=== PATIENT | female | born 2000 | race Caucasian/White ===

== ENCOUNTER 2021-09-26 15:17 | Outpatient (CLI) | payer BC, SELFPAY ==
--- OUTSIDE RECORDS SUMMARY | 2021-09-26 15:25 | XMS_ITS | Encounter Summary ---
:2000 Author Organization [facility] Address [address] [place] [address] Care Team Providers Name Role Phone Unavailable Primary Care Provider Unavailable Encounter Details Date Type Department Care Team Description 01/04/2020 Admin Visit Department of Family Medicine, [address] [address] [facility] [phone] Social History Tobacco Use Types Packs/Day Years Used Date Smoking Tobacco: Never Assessed Sex Assigned at Date Recorded Not on file documented as of this encounter Plan of Treatment Not on filedocumented as of this encounter Visit Diagnoses Not on filedocumented in this encounter Additional Health Concerns Infection Onset Date Last Indicated Resolved Time COVID19 Pending 01/04/2020 01/04/2020 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
--- OUTSIDE RECORDS SUMMARY | 2021-09-26 15:25 | XMS_ITS | Encounter Summary ---
:2000 Author Organization [facility] Address [address] [place] [address] Care Team Providers Name Role Phone Unavailable Primary Care Provider Unavailable Encounter Details Date Type Department Care Team Description 04/26/2020 Clinical Communication Division of Hematology Rachael Love, and Medical Oncology Kaylee Raphael. in [place], [address] [facility] [address] [place] [phone] Social History Tobacco Use Types Packs/Day Years Used Date Smoking Tobacco: Never Assessed Sex Assigned at Date Recorded Not on file documented as of this encounter Plan of Treatment Not on filedocumented as of this encounter Visit Diagnoses Not on filedocumented in this encounter
--- OUTSIDE RECORDS SUMMARY | 2021-09-26 15:25 | XMS_ITS | Clinical Summary ---
:2001 Author Organization [facility] Address [address] [place] [address] Care Team Providers Name Role Phone Unavailable Primary Care Provider Unavailable Source Comments Patient records contain information from all sites at [facility]. For routine questions regarding patient records, call [phone] during business hours, M-F 8:00 AM - 5:00 PM Central Time. Record requests for emergency care only can be directed to [phone] at any time.[facility] Social History Tobacco Use Types Packs/Day Years Used Date Smoking Tobacco: Never Assessed Sex Assigned at Date Recorded Not on file Plan of Treatment Health Maintenance Due Date Last Done Comments Chlamydia and Gonorrhea 2001 Screening HIV Screening 2001 Hearing Screening during 2001 Well Child Visit Hepatitis C Screening 2001 1 week Well Child Check-Up 2001 2 month Well Child Check-Up 2001 4 month Well Child Check-Up 2001 6 month Well Child / 2001 Alternative Check-Up COVID-19 Vaccine (#1) 2001 9 month Well Child Check-Up 01/15/2002 12 month Well Child / 04/15/2002 Alternative Check-Up 15 month Well Child Check-Up 07/16/2002 18 month Well Child / 10/16/2002 Alternative Check-Up 2 year Well Child Check-Up 04/16/2003 (Medicaid) 2 year Well Child Check-Up 04/16/2003 30 month Well Child Check-Up 10/17/2003 (Medicaid) 3 year Well Child Check-Up 04/15/2004 4 year Well Child Check-Up 04/15/2005 (Medicaid) 5 year Well Child Check-Up 2005 5 year Well Child Check-Up 04/15/2006 (Medicaid) 6 year Well Child Check-Up 04/16/2007 (Medicaid) 7 year Well Child / 04/15/2008 Alternative Check-Up 8 year Well Child Check-Up 04/15/2009 (Medicaid) 9 year Well Child / 04/15/2010 Alternative Check-Up 10 year Well Child Check-Up 04/16/2011 (Medicaid) 11 year Well Child Check-Up 04/15/2012 12 year Well Child Check-Up 04/15/2013 (Medicaid) 13 year Well Child Check-Up 04/15/2014 14 year Well Child Check-Up 04/16/2015 (Medicaid) Vision Screening during Well 05/17/2015 Child Visit 16 year Well Child Check-Up 04/15/2016 16 year Well Child Check-Up 04/15/2017 (Medicaid) 17 year Well Child Check-Up 04/15/2018 18 year Well Child Check-Up 04/16/2019 (Medicaid) 19 year Well Child Check-Up 04/15/2020 Depression Screening (Annual 02/16/2021 PHQ-2) 21 year Well Child Check-Up 04/15/2021 (Medicaid) Influenza Vaccine (#1) 2021 Well Child Check-Up ([facility]) 04/15/2022 DTaP,Tdap,and Td Vaccines (7 07/05/2022 07/05/2012, 007, - Td or Tdap) 08/16/2002, Additional history exists Hepatitis B Vaccines Completed 02/28/2002, 2001, 2001 Pneumococcal vaccine (0-64 Aged Out 08/16/2002, 2, No longer eligible years) 2001 based on patient 's age to complete this topic HPV Vaccines Completed 11/08/2018, 10/06/2013, 05/18/2013 Meningococcal Vaccine Completed 11/08/2018, 07/05/2012 Anemia/Iron Deficiency Completed 03/17/2019, 06/24/2018 Screening During Well Child Visit (if High Risk Menstruating Female) Insurance Payer Benefit Plan / Subscriber ID Effective Dates Phone Addre ss Type Group [employer] [id number] 2013-Sophie [phone] [address] PPO BLUE [facility] [address] [place] [address]
--- OUTSIDE RECORDS SUMMARY | 2021-09-26 15:25 | XMS_ITS | Encounter Summary ---
:2000 Author Organization [facility] Address [address] [place] [address] Care Team Providers Name Role Phone Unavailable Primary Care Provider Unavailable Reason for Visit Reason Onset Date Comments Outpatient COVID-19 Testing 01/04/2020 Encounter Details Date Type Department Care Team Description 01/04/2020 External Outreach Department of Ambrosio Deleon Infect ion Upper Internal Medicine in J, D.O. Respiratory ([place], [place] [address] Dx) [address] [place] [phone] Social History Tobacco Use Types Packs/Day Years Used Date Smoking Tobacco: Never Assessed Sex Assigned at Date Recorded Not on file documented as of this encounter Progress Notes Rosetta Mulligan, R.N. - 01/04/2020 9:44 AM CST Encounter created for the drive-through COVID-19 testing. ER SEAL documented in this encounter Plan of Treatment Not on filedocumented as of this encounter Procedures Procedure Name Priority Date/Time Associated Comments Diagnosis SARS CORONAVIRUS 2 Routine 01/04/2020 9:45 AM Res ults for this PCR DETECT, V FISHER SEAL procedure are in the results section. documented in this encounter Results SARS Coronavirus 2 RNA Detection (01/04/2020 9:45 AM FISHER SEAL) [facility] Method Time Signature SARS-CoV-2 Nasopharynx 01/05/2020 [facility] Specimen 12:15 PM FISHER SEAL Source SARS-CoV-2 Undetected Undetected 01/05/2020 [facility] RNA by PCR 12:15 PM FISHER SEAL Comment: SARS-CoV-2 RNA absent. This result does not rule out COVID-19 in the patient, as the sensitivity of the test depends o n the timing of the specimen collection and the quality of the specim en. Result should be correlated with patient's history and clinical presentat ion. ----ADDITIONAL INFORMATION---- This PCR test was performed using the LessonFace SARS-CoV-2 assay ([employer] on the kayce MiniBanda.ru0 System under emergency use authorization (EUA) by the U.S. Food and Drug Administ ration. Fact sheets for this assay can be found at the following links: For Healthcare Providers: https://www.[employer] a.gov/media/687816/download For Patients: https://www.fda.gov/media/ 406302/download Specimen Anatomical Collection Method Collection Time Receive d Time (Source) Location / / Volume Laterality Varies 01/04/2020 9:45 AM 0 1:48 FISHER SEAL AM FISHER SEAL Ambrosio Deleon D.O. LAB MICROBIOLOGY - GENERAL O RDERABLES Performing Organization Address City/State/ZIP Code Phon e Number [facility] [address] [place] [address] SUPPORT CENTER [facility] [place] [address] Laboratory Medicine and Pathology [address] [place] documented in this encounter Visit Diagnoses Diagnosis Infection Upper Respiratory - Primary documented in this encounter Additional Health Concerns Infection Onset Date Last Indicated Resolved Time COVID19 Pending 01/04/2020 01/04/2020 01/04/2020 12:43 PM FISHER SEAL documented as of this encounter
[2021-09-27 17:47] LABS: Strep B DNA Probe NEGATIVE (Negative)
== END 2021-09-26 15:18 | disposition home or self-care (01) ==
LOC: NFLDREF 15:23
PROVIDERS: PCP Family Medicine; Visit Provider Physician Assistant
DX: Z34.93 Encounter for supervision of normal pregnancy, unspecified, third trimester (principal); Z3A.36 36 weeks gestation of pregnancy
CPT/HCPCS: 87081; 87653

== ENCOUNTER 2021-09-27 16:15 | Inpatient (IN) | payer BC, SELFPAY ==
[2021-09-27] VITALS (41 sets, daily range): BP systolic 92–184; BP diastolic 51–91; PULSE 54–102; RESP 16–18; TEMP 36.9–37; O2SAT 89–100; BMI 33.3
--- OUTSIDE RECORDS SUMMARY | 2021-09-27 14:27 | XMS_ITS | Encounter Summary ---
:2001 Author Organization [facility] Address [address] [place] [address] Care Team Providers Name Role Phone Unavailable Primary Care Provider Unavailable Encounter Details Date Type Department Care Team Description 01/04/2020 Admin Visit Department of Family Medicine, [address] [address] [facility] [phone] Social History Tobacco Use Types Packs/Day Years Used Date Smoking Tobacco: Never Assessed Sex Assigned at Date Recorded Not on file documented as of this encounter Plan of Treatment Not on filedocumented as of this encounter Visit Diagnoses Not on filedocumented in this encounter Additional Health Concerns Infection Onset Date Last Indicated Resolved Time COVID19 Pending 01/04/2020 01/04/2020 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
--- OUTSIDE RECORDS SUMMARY | 2021-09-27 14:27 | XMS_ITS | Encounter Summary ---
:2001 Author Organization [facility] Address [address] [place] [address] Care Team Providers Name Role Phone Unavailable Primary Care Provider Unavailable Encounter Details Date Type Department Care Team Description 04/26/2020 Clinical Communication Division of Hematology Rachael Love, and Medical Oncology Kaylee Raphael. in [place], [address] [facility] [address] [place] [phone] Social History Tobacco Use Types Packs/Day Years Used Date Smoking Tobacco: Never Assessed Sex Assigned at Date Recorded Not on file documented as of this encounter Plan of Treatment Not on filedocumented as of this encounter Visit Diagnoses Not on filedocumented in this encounter
--- OUTSIDE RECORDS SUMMARY | 2021-09-27 14:27 | XMS_ITS | Encounter Summary ---
:2001 Author Organization [facility] Address [address] [place] [address] Care Team Providers Name Role Phone Unavailable Primary Care Provider Unavailable Encounter Details Date Type Department Care Team Description 06/12/2020 Orders Only [facility] PCP TH Sa rita Lynch M.D. [address] [place], [place] [phone] (Wo rk) Social History Tobacco Use Types Packs/Day Years Used Date Smoking Tobacco: Never Assessed Sex Assigned at Date Recorded Not on file documented as of this encounter Plan of Treatment Not on filedocumented as of this encounter Visit Diagnoses Not on filedocumented in this encounter
--- OUTSIDE RECORDS SUMMARY | 2021-09-27 14:27 | XMS_ITS | Encounter Summary ---
:2001 Author Organization [facility] Address [address] [place] [address] Care Team Providers Name Role Phone Unavailable Primary Care Provider Unavailable Reason for Visit Reason Onset Date Comments Outpatient COVID-19 Testing 01/04/2020 Encounter Details Date Type Department Care Team Description 01/04/2020 External Outreach Department of Ambrosio Deleon Infect ion Upper Internal Medicine in J, D.O. Respiratory ([place], [place] [address] Dx) [address] [place] [phone] Social History Tobacco Use Types Packs/Day Years Used Date Smoking Tobacco: Never Assessed Sex Assigned at Date Recorded Not on file documented as of this encounter Progress Notes Rosetta Mulligan, R.N. - 01/04/2020 9:44 AM CST Encounter created for the drive-through COVID-19 testing. 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 documented in this encounter Results SARS Coronavirus 2 RNA Detection (01/04/2020 9:45 AM GAME DESIGNER/CREATIVE DIRECTOR) [facility] Method Time Signature SARS-CoV-2 Nasopharynx 01/05/2020 [facility] Specimen 12:15 PM GAME DESIGNER/CREATIVE DIRECTOR Source SARS-CoV-2 Undetected Undetected 01/05/2020 [facility] RNA by PCR 12:15 PM GAME DESIGNER/CREATIVE DIRECTOR Comment: SARS-CoV-2 RNA absent. This result does not rule out COVID-19 in the patient, as the sensitivity of the test depends o n the timing of the specimen collection and the quality of the specim en. Result should be correlated with patient's history and clinical presentat ion. ----ADDITIONAL INFORMATION---- This PCR test was performed using the 4s91.com SARS-CoV-2 assay ([employer] on the kayce ZoomForth0 System under emergency use authorization (EUA) by the U.S. Food and Drug Administ ration. Fact sheets for this assay can be found at the following links: For Healthcare Providers: https://www.[employer] a.gov/media/427242/download For Patients: https://www.fda.gov/media/ 519630/download Specimen Anatomical Collection Method Collection Time Receive d Time (Source) Location / / Volume Laterality Varies 01/04/2020 9:45 AM 0 1:48 GAME DESIGNER/CREATIVE DIRECTOR AM GAME DESIGNER/CREATIVE DIRECTOR Ambrosio Deleon D.O. LAB MICROBIOLOGY - GENERAL O RDERABLES Performing Organization Address City/State/ZIP Code Phon e Number [facility] [address] [place] [address] SUPPORT [facility] [place] [address] Laboratory Medicine and Pathology [address] [place] documented in this encounter Visit Diagnoses Diagnosis Infection Upper Respiratory - Primary documented in this encounter Additional Health Concerns Infection Onset Date Last Indicated Resolved Time COVID19 Pending 01/04/2020 01/04/2020 01/04/2020 12:43 PM GAME DESIGNER/CREATIVE DIRECTOR documented as of this encounter
--- NOTE | 2021-09-27 16:31 | P.OBHP_ITS ---
OB - H&P: HPI Labor/Induction History of Present Illness Time Seen by Provider: 16:31 Date Seen: 09/27/21 Chief Complaint: The patient is a 21 year old 1 para 0 at 36 4/7 weeks gestation by a first trimester USN, who presents with painful contractions that started as cramping yesterday. Vertex presentation. No complaint of leaking fluid. GBS was collected yesterday and the result is not available at the time of this note. The [facility] bpm consultant detective [facility] was contacted to see if they would recommend antibiotics for GBS prophylaxis due to GBS unknown status. The baby has been moving normally. The patient denies headache, swelling, visual changes, right upper quadrant pain and midepigastric pain. PAST OBSTETRICAL HISTORY: No previous pregnancies Contraception being uses during time of conception: No. Last menstrual period normal: History of irregular.. Usual length of cycle: Irregular. Treatment for infertility: No. LMP: Uncertain. Last pap: Due for 1st Pap at age 22. History of abnormal pap: Not applicable. History of STI or PID: Denies. History of MRSA: Denies. PAST MEDICAL HISTORY: History of depression. She has been off medication for 1-2 years. She reports some multiple medication trials and does not recall what did work for her. She feels she is doing well currently IMMUNIZATIONS: Up-to-date. History of chicken pox: No . SURGICAL HISTORY: None report History of blood transfusion: No . 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 Marital status: Single. Baptist/cultural needs: No. Chemical or radiation exposure: No. Pre- tobacco use: Yes. Pre- alcohol use: No. Current tobacco use: vape daily. Current alcohol use: No. Recreational drug use: No. Dietary restrictions: No. Blood transfusion acceptable in an emergency: Yes . FAMILY AND GENETIC HISTORY: Negative for recurrent loss, defects, inheritable disease. PSYCHOSOCIAL HISTORY: History of depression or currently depresses: Yes. Current physical, emotional, or sexual mistreatment: No. Problems that will make it hard to make it to appointments: No. REVIEW OF SYSTEMS: Positives noted above. Remainder of 10 point review of system today is negative Chief complaint: Maternity Narrative: Teresita Lucas is a 21 year old female History of Present Dating criteria: based on 1st trimester US only Review of Systems Status of ROS: Reports: 10 or more systems reviewed and unremarkable except as noted in History and below Meds Home Medications and Allergies Home Medications Medication Instructions Recorded Confirmed Type ferrous sulfate 325 mg (65 mg 325 mg PO QDAY 08/27/21 09/27/21 History iron) tablet prenat.vits,duglas,brp-raia-ekclo 1 tab PO QDAY 08/27/21 09/27/21 History Allergies Allergy/AdvReac Type Severity Reaction Status Date / Time Sulfa (Sulfonamide Allergy Mild Rash Verified 09/26/21 15:13 Antibiotics) OB - H&P: Exam Physical Exam: Vital signs: Pulse BP 62 131/76 09/27/21 14:29 09/27/21 14:29 Narrative: EXAM: VITAL SIGNS: Normal: see EMR. She is afebrile. GENERAL: She is alert and oriented times three in no acute distress. HEART: Regular rate and rhythm. LUNGS: Clear to auscultation bilaterally. ABDOMEN: Soft, nontender, and gravid with positive bowel sounds throughout. HEART TONES: 130's, (+) accels, (-) decels, reactive. Category 1. TOCO: Q2-3 minutes. PRESENTATION: Vertex by Tex's maneuvers. SVE per nursincm/100%/0 with a bulging bag of water. EXTREMITIES: Without cyanosis, clubbing, or edema. No varicosities are seen. NEUROLOGIC: Intact. OB - Problem Based A/P Additional Plan (1) : Status: Acute Delivery/Labor/Induction Plan Plan: expectant management and other (Expect vaginal delivery. Patient desires an epidural. )
[2021-09-27] MEDS: LACTATED RINGERS 1000 ML 1,000 ML IV ×2 (16:38→17:13)
[2021-09-27] MEDS: ROPIVACAINE 0.2% 100 ml 100 ML 12 MG EPIDURAL (16:55)
[2021-09-27 17:38] LABS: SARS PCR* Negative SARS-CoV-2 (Negative)
[2021-09-27] MEDS: AMPICILLIN 2 GM in 0.9 % SODIUM CHLORIDE Mini-bag 100 ML IVPB (17:51)
[2021-09-27 17:56] LABS: Amphetamine Screen Urine Negative (Negative); Barbiturate Screen Urine Negative (Negative); Benzodiazepines Screen Urine Negative (Negative); Cocaine Screen Urine Negative (Negative); Methadone Screen Urine Negative (Negative); Methamphetamines Screen Urine Negative (Negative); Opiate Screen Urine Negative (Negative); Oxycodone Screen Urine Negative (Negative); Phencyclidine Screen Urine Negative (Negative); Tricyclic Antidepressant Urine Negative (Negative)
[2021-09-27 18:05] LABS: Cannabinoid Screen Urine POSITIVE (Negative)
--- NOTE | 2021-09-27 18:48 | PM.ANBPRC ---
PFSH PFS Social History Smoking Status: Current every day smoker Meds Home Medications and Allergies Home Medications Medication Instructions Recorded Confirmed Type ferrous sulfate 325 mg (65 mg 325 mg PO QDAY 08/27/21 09/27/21 History iron) tablet prenat.vits,duglas,nzc-yszx-kifjx 1 tab PO QDAY 08/27/21 09/27/21 History Allergies Allergy/AdvReac Type Severity Reaction Status Date / Time Sulfa (Sulfonamide Allergy Mild Rash Verified 09/26/21 15:13 Antibiotics) Results Labs Labs: Laboratory Results - last 24 hr 09/27/21 09/27/21 16:40 18:00 Urine Opiates Screen Negative Ur Oxycodone Screen Negative Urine Methadone Screen Negative Ur Propoxyphene Screen Negative Ur Barbiturates Screen Negative U Tricyclic Antidepress Negative Ur Phencyclidine Scrn Negative Ur Amphetamines Screen Negative U Methamphetamines Scrn Negative U Benzodiazepines Scrn Negative Urine Cocaine Screen Negative U Marijuana (THC) Screen POSITIVE A* SARS-CoV-2 (PCR) Negative SARS-CoV-2 Vital Signs Vital Signs: Last Vital Signs Pulse 70 09/27/21 18:36 BP 92/54 L 09/27/21 18:36 Pulse Ox 99 09/27/21 17:14 Weight: 85.275 kg Height: 160.02 cm Anesthesia Procedures Epidural Insertion Patient Location: OB Start Time: 16:45 Stop Time: 17:35 Start Date: 09/27/21 Stop Date: 09/27/21 Reason for Block: procedure for pain Patient Position: sitting Performed By: Shane Wilson Preanesthetic Checklist: IV checked, risks and benefits discussed, surgical consent, monitors and equipment checked, pre-op evaluation, timeout performed and anesthesia consent Prep: chlorhexidine gluconate Monitoring: blood pressure monitoring, continuous pulse oximetry and heart rate Approach: midline Vertebral Space: lumbar (1-5) Epidural Technique: DARLENE saline Needle Type: Tuohy needle Injection Technique: continuous catheter Needle gauge: 17 Needle Length (cm): 10 cm Needle Insertion Depth (cm): 6 Catheter Gauge: 19 Catheter Type: multi-orifice Catheter at skin depth (cm): 12 Test Dose Result: negative and lidocaine 1.5% with epinephrine 1 to 200,000
--- NOTE | 2021-09-27 20:19 | PM.OBPNL ---
Pain Control Time Seen by Provider: 20:18 Date Seen: 09/27/21 Pain control: epidural (States that she is having a lot of pressure like she has to push. Verbal consent for AROM) Contractions Monitor mode: External Contraction frequency: 3 Contraction pattern: Regular Contraction intensity: Moderate Pelvic Exam Dilation (cm): 7 Effacement (%): 100 Station: +1 Fetus (Single) Amniotic Membrane Status: AROM (Thick meconium) status: Category ll Comments: Baseline 130-140bpm, variable decels intermittently to 90-100's, moderate variability, (+) accels, reactive. 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 Expect
[2021-09-27] MEDS: OXYTOCIN 30 unit/500 ML in NS 30 UNIT/500 ML BAG 300 UNIT IVPB (20:44)
[2021-09-27] MEDS: LIDOCAINE 1 % PF 30 ML INJECTION (21:00)
--- NOTE | 2021-09-27 21:01 | PM.GYNDS1 ---
DS: Providers Provider Date of admission: 09/27/21 16:15 Primary care physician: Krishna Hurley MD Admitting Clinician: Cassie Jay MD Consults: 09/27/21 16:54 Consult to Gift Consultant [CONS] Routine Comment: Reason for Consult:: Substance Abuse Screening 09/27/21 17:35 Consult to Gift Consultant [CONS] Routine Comment: Reason for Consult:: Substance Abuse Screening Attending Physician on discharge: Cassie Jay MD TAKER OFF HEMP FIBER-Discharge Summary Hospital Course Hospital Course Narrative: Patient is a [] year old admitted on [] for []. Indication for surgery: []. Intraoperative findings were notable for []. She had an uncomplicated surgery. Postoperative course has been uneventful. Vitals have been stable. She has remained afebrile. Today, on postoperative day [], she reports the pain is well controlled. She has been able to ambulate Without difficulty. She is tolerating regular diet. She is passing flatus. Ceja catheter has been removed, and she is voiding without difficulty. Time Spent with Patient Time attestation: Total time spent providing and/or coordinating discharge services: TAKER OFF HEMP FIBER - Exam Physical Exam: Vital signs: Temp Pulse Resp BP Pulse Ox 98.5 F 98 16 158/84 H 99 09/27/21 20:15 09/27/21 20:22 09/27/21 19:17 09/27/21 20:22 09/27/21 19:30 TAKER OFF HEMP FIBER - DS: Data Data Completed and Pending Labs on day of discharge: Labs from last 24 hours 09/27/21 09/27/21 18:00 16:40 Urine Opiates Screen Negative Ur Oxycodone Screen Negative Urine Methadone Screen Negative Ur Propoxyphene Screen Negative Ur Barbiturates Screen Negative U Tricyclic Antidepress Negative Ur Phencyclidine Scrn Negative Ur Amphetamines Screen Negative U Methamphetamines Scrn Negative U Benzodiazepines Scrn Negative Urine Cocaine Screen Negative U Marijuana (THC) Screen POSITIVE A* SARS-CoV-2 (PCR) Negative SARS-CoV-2 Discharge Plan Discharge Date of Admission: 09/27/21 16:15 Attending Physician on Admission: Cassie Jay Primary Care Provider: Krishna Hurley Discharge Medications: No Action ferrous sulfate 325 mg (65 mg iron) tablet 325 mg PO QDAY prenat.vits,duglas,mmx-cehj-mthfh Tablet 1 tab PO QDAY ondansetron HCl 4 mg tablet See Rx Instructions .ROUTE .COMPLEX Qty: 30 0RF Dose Instruction: TAKE 1 TABLET BY MOUTH EVERY 6 HOURS Rx Instructions: TAKE 1 TABLET BY MOUTH EVERY 6 HOURS Follow Up Appointments: Krishna Hurley MD [Primary Care Provider] -
--- NOTE | 2021-09-27 21:03 | PM.OBPRCVD ---
Procedure Delivery date: 09/27/21 Procedure Done: Global Procedure Details: Teresita is a 21 year-old G 1 P 0 now 1 admitted on 09/27/2021 at 36 Weeks, 4 Days gestation for pre term onset of labor. Cervical exam on admission was 5 cm/95 % effaced/0 station with membranes intact in vertex presentation. Contractions were every 2-4 minutes. heart rate demonstrated baseline 130s bpm with moderate variability, positive accelerations, negative decelerations; a category 1 tracing. AROM occurred at 8:11 p.m. on 09/27/2021 with heavy meconium-stained fluid. Labor Analgesia: Nitrous and epidural Pitocin: No Labor onset: 09/27/2021 at 4:00 p.m.. Complete: 09/27/2021 at 8:24 p.m.. Pushin09/27/2021 at 8:25 p.m.. heart tones during second stage were: Category 2 with variable decelerations to the 70s intermittently during contractions, moderate variability between contractions, reassuring. At 8:42 p.m. a viable male infant delivered in vertex direct OA presentation over second-degree perineal laceration via spontaneous vaginal delivery. The was placed on maternal abdomen. Cord was clamped and cut after a 30 second delay. Nose and mouth were bulb suctioned. weight pending. 7 at 1 minute and 9 at 5 minutes. Shoulder dystocia: No. Nuchal cord: [] Placenta delivered spontaneously and complete at 8:49 p.m. with a three-vessel cord. Laceration(s): 2nd degree perineal. Repaired using 3-0 Vicryl suture in the usual manner. Blood loss: 50 mL. Blood loss measurement type: Quantitative Sponge and needles counts are correct. Specimen: Placenta Mother and infant were stable after delivery. Infant's name: Deepak Patterson The patient is planning on breast feeding. Events: Labor < 37 Weeks and Meconium Stained Fluid Intrapartal Events: Mod/Heavy Meconium Fluid Delivery augmentation: rupture of membranes Delivery monitor: external FHT Route of delivery: Laceration description: Perineal - 2nd Degree Delivery repair: Vicryl Estimated blood loss (mL): 50 Anesthesia type: Nitrous Disposition: floor [place] Gender: Male presentation: vertex Placental Delivery Description: Spontaneous Cord Description: 3 Vessels
[2021-09-27] MEDS: IBUPROFEN 600 MG TABLET PO (23:45)
[2021-09-28 01:30] VITALS: BP 110/67; PULSE 62; RESP 16; TEMP 37; O2SAT 97
[2021-09-28] MEDS: LANOLIN CREAM 1 APPLIC TOPICAL (02:00)
[2021-09-28] MEDS: ACETAMINOPHEN 500 MG TABLET 1000 MG PO (04:41)
[2021-09-28 04:48] VITALS: BP 118/71; PULSE 79; RESP 16; TEMP 36.4; O2SAT 97
[2021-09-28 08:00] VITALS: BP 125/87; PULSE 71; RESP 18; TEMP 37; O2SAT 96
--- NOTE | 2021-09-28 10:15 | PM.OBPNVD1 ---
OB - PN:Subj Subjective Date Seen: 09/28/21 Interval history: Teresita is doing well. She is her son, and is doing well with latching. She denies any heavy bleeding or pain. She is ambulating and urinating without difficulty. She is ready to go home as soon as her son is. Patient comments OB post-: no complaints and pain well controlled [place] feeding status: exclusively OB - PN: Obj Exam Physical Exam: Vital signs: Temp Pulse Resp BP Pulse Ox O2 Del Method 98.6 F 71 18 125/87 96 09/28/21 08:00 09/28/21 08:00 09/28/21 08:00 09/28/21 08:00 09/28/21 08:00 09/28/21 08:00 Narrative: General: Pleasant, no acute distress Heart: Regular rate and rhythm, no murmur or gallop Lungs: Clear to auscultation bilaterally Abdomen: Soft, nontender, fundus well below umbilicus Lower extremities: No edema or erythema OB - PN: Obj Data Labs Labs: Laboratory Results - last 24 hr 09/27/21 09/27/21 09/28/21 16:40 18:00 06:41 Hgb 10.0 L Urine Opiates Screen Negative Ur Oxycodone Screen Negative Urine Methadone Screen Negative Ur Propoxyphene Screen Negative Ur Barbiturates Screen Negative U Tricyclic Antidepress Negative Ur Phencyclidine Scrn Negative Ur Amphetamines Screen Negative U Methamphetamines Scrn Negative U Benzodiazepines Scrn Negative Urine Cocaine Screen Negative U Marijuana (THC) Screen POSITIVE A* SARS-CoV-2 (PCR) Negative SARS-CoV-2 OB - PN: A/P Vaginal Delivery Assessment and Plan (1) delivery: Status: Acute (2) Second degree perineal laceration: Status: Acute (3) (normal spontaneous vaginal delivery): Status: Acute Assessment and Plan: G1 now P 0-1-0-1 woman 1 day status post normal spontaneous vaginal delivery at 36 weeks, 4 days gestation. Appropriate course. Discharge today or tomorrow depending on infant's status. (4) Tetrahydrocannabinol (THC) use disorder, mild, abuse: Status: Acute Assessment and Plan: Patient aware of positive drug screen, social work already involved. (5) Anemia associated with acute blood loss: Status: Acute Assessment and Plan: Continue ferrous sulfate once daily. Plan Plan: routine care Comments: Anticipate discharge tomorrow.
[2021-09-28 13:00] VITALS: BP 125/78; PULSE 61; RESP 18; TEMP 37.1; O2SAT 97
[2021-09-28 17:30] VITALS: BP 122/71; PULSE 64; RESP 16; TEMP 36.7; O2SAT 96
[2021-09-28] MEDS: IBUPROFEN 600 MG TABLET PO (17:33)
[2021-09-28 19:28] VITALS: BP 118/75; PULSE 67; RESP 16; TEMP 37; O2SAT 97
[2021-09-29] MEDS: IBUPROFEN 600 MG TABLET PO (00:49)
[2021-09-29 03:20] VITALS: BP 120/79; PULSE 54; RESP 16; TEMP 36.5; O2SAT 97
[2021-09-29 09:50] VITALS: BP 128/77; PULSE 65; RESP 16; TEMP 36.6; O2SAT 97
--- NOTE | 2021-09-29 10:38 | PM.OBDSVD1 ---
DS: Providers Provider Date Seen: 09/29/21 Date of admission: 09/27/21 16:15 Primary care physician: Krishna Hurley MD Admitting Clinician: Cassie Jay MD Consults: 09/27/21 16:54 Consult to [facility] [CONS] Routine Comment: Reason for Consult:: Substance Abuse Screening 09/27/21 17:35 Consult to [facility] [CONS] Routine Comment: Reason for Consult:: Substance Abuse Screening Attending Physician on discharge: Cassie Jay MD Date of Discharge: 09/29/21 DS: Diagnosis Discharge Diagnosis (1) delivery: Status: Acute (2) (normal spontaneous vaginal delivery): Status: Acute (3) Anemia associated with acute blood loss: Status: Acute (4) Tetrahydrocannabinol (THC) use disorder, mild, abuse: Status: Acute Exam Narrative: Exam Narrative: General: Pleasant, no acute distress Heart: Regular rate and rhythm, no murmur or gallop Lungs: Clear to auscultation bilaterally Abdomen: Soft, nontender, fundus at umbilicus Lower extremities: No edema or erythema Const: Vital Signs, click to edit/add: Vital Signs - 24 hr 09/28/21 13:00 09/28/21 17:30 09/28/21 19:28 Temperature 98.8 F 98.0 F 98.6 F Pulse Rate [Pulse Oximeter] 61 64 67 Respiratory Rate 18 16 16 Blood Pressure [Ri ght Arm] 125/78 122/71 118/75 Pulse Oximetry 97 96 97 Oxygen Delivery Me thod Room Air Room Air Room Air 09/29/21 03:20 09/29/21 09:50 Temperature 97.7 F 98 F Pulse Rate [Pulse Oximeter] 54 L 65 Respiratory Rate 16 16 Blood Pressure [Ri ght Arm] 120/79 128/77 Pulse Oximetry 97 97 Oxygen Delivery Me thod Room Air Room Air OB - DS: Summary Hospital Course Hospital Course: The patient is a 21 year old G 1 now P 0-1-0-1 woman who presented at 36 weeks , 4 days gestation in labor on 09/27/21. She had an uncomplicated spontaneous vaginal delivery. She delivered a viable male infant. She is [breast/bottle] feeding. the patient has done well. She is followed by social work for THC use. She has not used in 2 weeks and doesn't intend to continue. Today, on PPD#2, she has no complaints. She is well. She denies any heavy bleeding. Peripartum Data Infant delivery method: Vaginal complications: none [place] Gender: Male Status at Discharge Functional status at discharge: independent ambulation Time Spent with Patient Time attestation: Total time spent providing and/or coordinating discharge services: Time spent: Less than 30 minutes Discharge Plan Discharge Disposition: Home, Self-Care Date of Admission: 09/27/21 16:15 Attending Provider on Discharge: Michaela Galaviz Primary Care Provider: Krishna Hurley Condition: Stable Anticipated Discharge Date/Time: 09/29/21 12:14 Discharge Medications: New docusate sodium 100 mg Capsule 100 mg PO BID PRN (Reason: constipation) 30 Days Qty: 100 0RF ibuprofen 600 mg Tablet 600 mg PO Q6H PRN14 Days Qty: 30 0RF Continued ferrous sulfate 325 mg (65 mg iron) tablet 325 mg PO QDAY prenat.vits,duglas,[id number] Tablet 1 tab PO QDAY Discontinued ondansetron HCl 4 mg tablet See Rx Instructions .ROUTE .COMPLEX Qty: 30 0RF Dose Instruction: TAKE 1 TABLET BY MOUTH EVERY 6 HOURS Rx Instructions: TAKE 1 TABLET BY MOUTH EVERY 6 HOURS Discharge Orders: Discharge Order (Routine); Ordered 09/29/21 Ordered By: Michaela Galaviz Patient Education: Vaginal Delivery (DC) Activity Restrictions/Additional Instructions: Discharge instructions were reviewed with the patient including signs and symptoms of infection and home going medications. Do not drive while taking narcotic pain meds. Off Work or School for 6 weeks. Symptoms to report to doctor: -Bleeding that saturates more than one pad per hour ?-Passing clots larger than the size of a golf ball ?-Pain not relieved by prescribed medication ?-Fever above 100.4 degrees Fahrenheit ?-A foul vaginal odor ?-Difficulty in emotions, mood and functions ?-Thoughts of hurting yourself and/or ?-Painful, reddened area in your breast ?-Any drainage, redness or tenderness in your IV/epidural site ?-Severe headache that doesn't improve after taking medications ?-Changes in vision, including temporary loss of vision, blurred vision, and/or light sensitivity ?-Upper abdominal pain (usually under ribs on the right side) ?-Decrease in urination or painful, frequent urinating ?-Chest pain ?-Shortness of breath ?-Tenderness or pain with redness and/swelling in the calf(s) of your leg Follow Up with a [facility] provider for an optional visit in 2 weeks: review control options, screen for depression and answer breast feeding questions. Then in 6 weeks for a physical exam in the [facility]. consultation services are available to all mothers and babies for the first year after delivery.? To make an appointment, please call [phone]. Activity Detail: Nothing per vagina for 6 weeks. Discharge Diet: Regular Follow Up Appointments: Mita Garcia CNM [Certified Nurse Continuous Process Rotary Drum Tanner] - Arleen Briggs CNP [Nurse Practitioner] - Marquita Torres CNM [Certified Nurse Continuous Process Rotary Drum Tanner] - Soo Enriquez CNM [Certified Nurse Continuous Process Rotary Drum Tanner] - Chen Buchanan PA-C [Physician Gas Transfer Operator] - Krishna Hurley MD [Primary Care Provider] - Forms: [facility] Info Instructions
[2021-09-29] MEDS: LANOLIN CREAM 1 APPLIC TOPICAL (11:29)
--- NOTE | 2021-09-30 08:18 | PC.SOCIAL ---
Pt.'s urine tox is positive for THC, pt.'s baby boy urine tox is negative. Will wait for meconium results to see if CP report needs to be made.
--- NOTE | 2021-10-01 10:06 | PC.SOCIAL ---
CP report made to Elsi Hancock at [facility] for pt.'s positive THC.
== END 2021-09-29 13:15 | disposition home or self-care (01) | DRG 560 ==
LOC: OB OUT 16:20 → OB 16:20
PROVIDERS: Admitting Provider Obstetrics & Gynecology; PCP Family Medicine; Visit Provider Obstetrics & Gynecology
DX: O77.0 Labor and delivery complicated by meconium in amniotic fluid (principal); O70.1 Second degree perineal laceration during delivery; O60.14X0 Preterm labor third trimester with preterm delivery third trimester, not applicable or unspecified; O99.324 Drug use complicating childbirth; F12.10 Cannabis abuse, uncomplicated; Z3A.36 36 weeks gestation of pregnancy; Z37.0 Single live birth
CPT/HCPCS: 01967; 36415; 80306; 85018; 87635; 88307; 99213; A9270; J0290; J2001; J2795; J7120; S0020

== ENCOUNTER 2023-07-18 13:22 | Emergency (ER) | payer BC, MEDICAID, SELFPAY ==
[2023-07-18 13:28] VITALS: BP 105/67; PULSE 91; RESP 18; TEMP 37.2; O2SAT 97; BMI 22.1
--- NOTE | 2023-07-18 13:46 | ED_ITS ---
HPI - Wound/Laceration General Date Seen: 07/18/23 Chief Complaint: Unspecified Complaint, Adult Stated Complaint: Tore R big toenail off Time Seen by Provider: 07/18/23 13:24 Source: patient Mode of arrival: ambulatory Limitations: no limitations History of Present Illness HPI narrative: Patient is a very nice 23-year-old female presents here with her young son, she caught her right great toenail, while she was cleaning her bathroom, she does have a history of fungus under how toenails. There is a little bit of bleeding, she says there is really no pain now she is able to walk and bear weight, denies any numbness tingling or other issues. Place: home Patient tetanus UTD: Yes Context: accidental Associated symptoms: none Related Data Home Medications ?Medication ?Instructions ?Recorded ?Confirmed No Known Home Medications 07/18/23 07/18/23 Allergies Allergy/AdvReac Type Severity Reaction Status Date / Time Sulfa (Sulfonamide Allergy Mild Rash Verified 07/18/23 13:31 Antibiotics) Review of Systems Status of ROS: Reports: 6 or more systems reviewed and unremarkable except as noted in History and below [facility] Medical History Anemia associated with acute blood loss ?D62 - Acute posthemorrhagic anemia (ICD-10) delivery ?O60.10X0 - labor with delivery, unspecified trimester, not applicable or unspecified (ICD-10) Major depression, recurrent ?F33.9 - Major depressive disorder, recurrent, unspecified (ICD-10) Tetrahydrocannabinol (THC) use disorder, mild, abuse ?F12.10 - Cannabis abuse, uncomplicated (ICD-10) Surgical History (normal spontaneous vaginal delivery) ?O80 - Encounter for full-term uncomplicated delivery (ICD-10) Social History Narrative: 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, 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, 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, 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[employer] Smoking Status: Current every day smoker Do you use any of these nicotine containing products: E-Cigarettes and Vaping Products Second hand tobacco smoke exposure: No How often do you have a drink containing alcohol: never AUDIT-C Alcohol total score: 0 Non-prescribed substance use: marijuana (any form) Little interest or pleasure in doing things: several days Feeling down, depressed, or hopeless: more than half the days Exam Narrative: Exam Narrative: Examination of the right foot, shows the onchogryphosis there is some blood dried blood around the distal part, she has only approximately 30% of the nail bed attached. She is able to D do good IP flexion and walking on the toenail. Do not see any evidence of a laceration. Const: Vital Signs, click to edit/add: Vital Signs - 24 hr 07/18/23 13:28 Temperature 98.9 F Pulse Rate [Pulse Oximeter] 91 Respiratory Rate 18 Blood Pressure [Ri ght Upper Arm] 105/67 Pulse Oximetry 97 Oxygen Delivery Me thod Room Air Documenting provider has reviewed patient's vital signs: yes Course Course ED Course: I discussed with her that actually if this comes office would be actually helpful for her, follow-up with podiatry and actually other primary care suggested, but we will do anything other for this today. She was comfortable this plan, we went over signs and symptoms of worsening. Vital Signs Vital signs: Initial Vital Signs Temperature 98.9 F 07/18/23 13:28 Temperature Source Temporal Artery Scan 07/18/23 13:28 Pulse Rate 91 07/18/23 13:28 Respiratory Rate 18 07/18/23 13:28 Blood Pressure 105/67 07/18/23 13:28 Blood Pressure Mean 79 07/18/23 13:28 Blood Pressure Position Sitting 07/18/23 13:28 Pulse Oximetry 97 07/18/23 13:28 Oxygen Delivery Method Room Air 07/18/23 13:28 Vital Signs Temperature 98.9 F 07/18/23 13:28 Pulse Rate 91 07/18/23 13:28 Respiratory Rate 18 07/18/23 13:28 Blood Pressure 105/67 07/18/23 13:28 Pulse Oximetry 97 07/18/23 13:28 Oxygen Delivery Method Room Air 07/18/23 13:28 Temperature 98.9 F 07/18/23 13:28 Pulse Rate 91 07/18/23 13:28 Respiratory Rate 18 07/18/23 13:28 Blood Pressure 105/67 07/18/23 13:28 Pulse Oximetry 97 07/18/23 13:28 Oxygen Delivery Method Room Air 07/18/23 13:28 Discharge Plan Discharge Clinical Impression: Injury of nail bed of toe, Onychogryposis of toenail Patient Disposition: Home w/ Parent or Adult Condition: Stable Additional Instructions: I think it would be reasonable to let her go home put some bacitracin on the underneath the nail bed, the reason that it lifted up was you caught it, this is very classic for that. I do think follow-up with primary care in you can discuss other options for treatment such as oral medications verses seeing a refinery operator gas plant for ongoing help. I would wear the dressing for the next couple days no swimming, return here if increasing swelling redness fevers or signs of infection. Prescriptions: No Action No Known Home Medications Follow Up/Referrals: Krishna Hurley MD [Primary Care Provider] - Stand Alone Forms: [facility] Info Instructions
--- OUTSIDE RECORDS SUMMARY | 2023-07-18 13:59 | XMS_ITS | Clinical Summary ---
Author Organization [facility] Address [place], [place] [address] Care Team Providers Care Corporate Travel Counselor Name Role Phone Josefa Contreras [place] Primary Care Provider Allergies Active Allergy Reactions Criticality Noted Date Comments Sulfa (Sulfonamide Antibiotics) Rash 02/17 Medications Medication Sig Dispensed Refills Start Date End Date Status ondansetron (ZOFRAN) 4 mg tablet Take 4 mg by mouth every 6 hours if needed. 07/11/2021 Active Vitamin B-6 25 mg tablet TAKE 1 TABLET BY MOUTH EVERY 8 HOURS NEEDED WITH UNISOM 07/01/2021 Active ondansetron (ZOFRAN) 4 mg tabletIndications:Naus ea/vomiting in Take 1 Tablet (4 mg) by mouth every 8 hours if needed for Nausea/Vomiting. 9 Tablet 07/13/2021 Active Active Problems Problem Noted Date Diagnosed Date Panic attacks 06/03/2020 Vitamin D deficiency 03/18/2019 Depression with anxiety 03/18/[address] 07/26/2018 Hypermetropia 01/12/2013 Estimated Date of Delivery Comme nts Yes 10/21/2021 Immunizations Name Administration Dates Next Due DTaP 05/06/2006, 3,2001,09/16,2001 DTaP-HIB (TriHIBIT) 08/16/2002 HIB-HepB (Comvax) 02/28/2002,2001,07/17/19 HPV 9 (Gardasil 9) 11/08/2018 Hepatitis A (Peds) 07/05/2012,05/28/2011 Human Papilloma Virus Vaccine 10/06/2013, 014 Inactivated Polio Vaccine 05/06/2006,02/2002,2001,07/16 MMR 08/16/2002 MMRV 05/06/2006 Meningococcal Vaccine (Menactra) 07/05/2012 Meningococcal Vaccine (Menveo) 11/08/2018 Pneumococcal conj 7-Valent (Prevnar 7) 3,2001,2001 Tdap 07/05/2012 Varicella Vaccine 05/17/2002 Family History Medical History Relation Name Comments Good Health Father Anxiety disorder Mother Psychiatric illness Mother Anxiety Relation Name Status Comments Brother Alive Father Alive Mother Alive Social History Tobacco Use Types Packs/Day Years Used Date Smoking Tobacco: Never Smokeless Tobacco: Never Tobacco Cessation:Counseling Given: Yes Comments:parents smoke outside Alcohol Use Standard Drinks/Week Comments No 0 (1 standard drink = 0.6 oz pur e alcohol) PHQ-2 Answer Date Recorded PHQ-2 TOTAL SCORE 2 05/29/2020 Social Connections Answer Date Recorded Frequency of Communication with Friends and Fami ly Not on file 02/16/2021 Financial Resource Strain Answer Date R ecorded Difficulty of Paying Living Expenses Not on file 02/16/2021 Difficulty of Paying Living Expenses Not on file 02/16/2021 Estimated Date of Delivery Comme nts Yes 10/21/2021 Sex and Gender Information Value Date Recorded Sex Assigned at Female 05/28/2023 10:48 PM CDT Gender Identity Female 05/28/2023 10:48 PM CDT Sexual Orientation Choose not to disclose 2023 10:48 PM CDT Obstetrics History Para Term AB IAB SAB Ectopic Multiple Livin g Live Births 1 0 0 0 0 0 0 0 0 0 0 Date Outcome GA Total Labor Labor/2nd/3rd Weight Sex Delivery Anes PTL Naya A1 A5 Name Cl in Current Last Filed Vital Signs Vital Sign Reading Time Taken Comments Blood Pressure 118/60 07/13/2021 12:34 PM CDT Pulse 100 07/13/2021 12:34 PM CDT Temperature 36.7 ??C (98 ??F) 07/13/2021 12:34 PM CDT Respiratory Rate 16 07/13/2021 12:34 PM CDT Oxygen Saturation 98% 07/13/2021 12:34 PM CDT Inhaled Oxygen Concentration - - Weight 81 kg (178 lb 9.6 oz) 07/13/2021 12:34 PM CDT Height 160 cm (5' 3) 06/28/2020 1:34 PM CDT Body Mass Index - - Plan of Treatment Health Maintenance Due Date Last Done Comments HIV for age 15-65 2016 Hepatitis C screening for age 18-79 05/17/2019 Chlamydia for age 16-24 04/19/2021 04/19/2020, 08/12 Depression screening for age 12+ 05/29/2021 05/29/2020, 04/19/2020, 08/19/2019, Additional history exists BMI (ht and wt on same day) for age 18+ 06/28/2021 06/28/2020, 04/19/2020 Pap test for age 21-65 2022 Tetanus booster 07/05/2022 07/05/2012 COVID-19 vaccine series ( season) 2022 Influenza for age 9-49 10/18/2023 Pneumococcal series for age 6-64 Aged Out 08/16/2002, 2001, 2001 No longer eligible based on patient's age to complete this topic Tdap Completed 07/05/2012 HPV series for age 9-26 Completed 11/09/19 19, 10/06/2013, 05/18/2013 Procedures Procedure Name Priority Date/Time Associated Diagnosis Comments GC CHLAMYDIA TRACH PROBE Routine 04/19/2020 10:12 AM CLEAN IN PLACES OPERATOR Nausea Screening for chlamydial disease from Last 3 Months or Most Recently Relevant to Health Maintenance Results * GC & CHLAMYDIA DNA PCR [[id number]] (04/19/2020 10:12 AM CLEAN IN PLACES OPERATOR) CHLAMYDIA PROBE Negative 10:25 PM CLEAN IN PLACES OPERATOR [facility] N GONORRHOEAE PROBE Negative 04/20/2020 10:25 PM CLEAN IN PLACES OPERATOR [facility] Other URINE SPECIMEN / Unknown Non-Blood / Unknown 04/19/2020 10:12 AM CLEAN IN PLACES OPERATOR 04/19/2020 10:12 AM CLEAN IN PLACES OPERATOR Josefa Contreras DO MICROBIOLOGY [facility] [address] [place] [address], from Last 3 Months or Most Recently Relevant to Health Maintenance Care Teams Corporate Travel Counselor Relationship Specialty Start Date End Date Josefa Contreras DO [address] [facility] [place] [address] PCP - General Internal Medicine 07/26/18
== END 2023-07-18 14:00 | disposition home or self-care (01) ==
PROVIDERS: Emergency Provider Family Medicine; PCP Family Medicine
DX: L60.2 Onychogryphosis (principal)
CPT/HCPCS: 99283

== ENCOUNTER 2023-09-25 12:18 | Outpatient (CLI) | payer BC, MEDICAID, SELFPAY ==
--- OUTSIDE RECORDS SUMMARY | 2023-10-02 10:45 | XMS_ITS | Clinical Summary ---
Author Organization [facility] Address [place], [place] [address] Care Team Providers Care Pipeline Dispatcher Name Role Phone Ben Josefaannmarie Lizarraga DO [...] Type Department Care Team Description 09/15/2023 Telephone [facility] [address] [place] [address] Geno Lozano PA Appointment 09/10/2023 8:26 PM CDT - 09/10/2023 9:20 PM CDT Emergency [facility] [address] [place] [address] Judith Lyons PA Urticaria (Primary Dx); Nexplanon in place Discharge Disposition: Home Self Care 09/10/2023 Travel 09/10/2023 Nurse Triage [facility] [address] [place] [address] Josefa Contreras, DO Derm Problem from Last [...] CHLAMYDIA TRACH PROBE Routine 04/19/2020 10:12 AM ROUSTABOUT HAND Nausea Screening for chlamydial disease from Last 3 Months or Most Recently Relevant to Health Maintenance Results * GC & CHLAMYDIA DNA PCR [[id number]] (04/19/2020 10:12 AM ROUSTABOUT HAND) CHLAMYDIA PROBE Negative 10:25 PM ROUSTABOUT HAND [facility] N GONORRHOEAE PROBE Negative 04/20/2020 10:25 PM ROUSTABOUT HAND [facility] Other URINE SPECIMEN / Unknown Non-Blood / Unknown 04/19/2020 10:12 AM R[facility]ST[facility]OUT HAND 04/19/2020 10:12 AM R[facility]STABOUT HAND Josefa Contreras DO MICROBIOLOGY [facility] [address] [place] [address], from Last 3 Months or Most Recently Relevant to Health Maintenance Care Teams Pipeline Dispatcher Relationship Specialty Start Date End Date Josefa Contreras DO [address] [place] [address] PCP - General Internal Medicine 07/26/18
== END 2023-09-25 12:19 | disposition home or self-care (01) ==
LOC: NFLDREF 10-02 10:44
PROVIDERS: PCP Family Medicine; Referring Provider Family Medicine; Visit Provider Nurse Practitioner Family
DX: N30.01 Acute cystitis with hematuria (principal); B95.7 Other staphylococcus as the cause of diseases classified elsewhere
CPT/HCPCS: 87086

== ENCOUNTER 2023-09-30 15:25 | Emergency (ER) | payer BC, MEDICAID, SELFPAY ==
[2023-09-30 15:49] VITALS: BP 111/61; PULSE 67; RESP 16; TEMP 36.9; O2SAT 98; BMI 22.1
--- NOTE | 2023-09-30 16:16 | CRLHL7_ITS ---
For Patients: As a result of the Century Cures Act, medical imaging exams and procedure reports are released immediately into your electronic medical record. You may view this report before your referring provider. If you have questions, please contact your health care provider. INDICATION: Right upper quadrant abdomen pain. TECHNIQUE: Ultrasound abdomen limited. Sonographic images of the right upper quadrant were obtained using hope-scale and color Doppler images. COMPARISON: None. FINDINGS: Liver: Normal in size and echotexture. No suspicious masses. No intrahepatic biliary dilatation. Gallbladder: No stones or sludge. Normal wall thickness. No pericholecystic fluid. Reportedly positive Flowers`s sign. Common bile duct: 3 mm. Pancreas: Unremarkable. Right kidney: Normal in size. Normal echotexture and cortex. No suspicious masses, stones, or hydronephrosis. Vasculature: Proximal abdominal aorta and IVC are unremarkable. IMPRESSION: Reportedly positive Flowers`s sign, but no abnormalities visualized. Dictated by Elle Lynne MD @ 09/30/2023 6:08:47 PM (Electronically Signed)
[2023-09-30 16:34] LABS: Basophils Absolute Auto 0.05 K/uL (0.00-0.30); Basophils Percent Auto 0.5 % (0.0-3.0); Eosinophils Absolute Auto 0.12 K/uL (0.00-0.50); Eosinophils Percent Auto 1.3 % (0.0-7.0); Hematocrit 41.8 % (33.0-51.0); Hemoglobin* 13.2 gm/dL (12.0-16.0); Immature Granulocytes Abs Auto 0.01 K/uL (0.00-0.30); Immature Granulocytes Pct Auto 0.1 %; Lymphocytes Percent Auto 19.3 % (20-44); Mean Corpuscular HGB Conc 32 gm/dL (32-36); Mean Corpuscular Hemoglobin 29 pg (26-34); Mean Corpuscular Volume 92 fL (80-100); Monocytes Percent Auto 8.5 % (0.0-11.0); Neutrophils Absolute Auto 6.63 K/uL (1.7-7.0); Neutrophils Percent Auto 70.3 % (42.0-72.0); Platelet Count* 179 K/uL (140-440); RDW Coefficient of Variation % 13.9 % (11.5-15.5); Red Blood Count 4.56 m/uL (4.00-5.20); White Blood Count* 9.43 K/uL (4.50-11.00)
[2023-09-30 16:35] LABS: Lactate* 0.7 mmol/L (0.5-1.9)
[2023-09-30 16:47] LABS: Slide Review Reflex No
[2023-09-30 16:48] LABS: Albumin* 4.7 g/dL (3.3-5.0); Chloride* 105 mmol/L (96-114); Sodium* 138 mmol/L (135-149)
[2023-09-30 16:49] LABS: Potassium* 3.8 mmol/L (3.6-5.1)
[2023-09-30 16:51] LABS: Anion Gap 6 mEq/L (7-15); Bilirubin Direct* 0.3 mg/dL (0.0-0.5); Bilirubin Total* 0.6 mg/dL (0.1-1.5); Carbon Dioxide* 27 mmol/L (20-32); Creatinine* 0.6 mg/dL (0.5-1.5); Est. Creatinine Clearance* 121.66; Estimated Glomerular Filt Rate 130 ml/min
[2023-09-30 16:52] LABS: Alanine Aminotransferase* 13 U/L (4-35); Alkaline Phosphatase* 55 U/L (40-150); Aspartate Amino Transferase* 19 U/L (12-35); Blood Urea Nitrogen* 10 mg/dL (5-24); Calcium* 9.8 mg/dL (8.4-10.6); Glucose* 103 mg/dL (60-115); Lipase* 54 U/L (23-300); Total Protein* 7.5 g/dL (6.0-8.3)
[2023-09-30 16:58] LABS: C Reactive Protein* < 0.5 mg/dL (0.5-1.0)
--- OUTSIDE RECORDS SUMMARY | 2023-09-30 17:18 | XMS_ITS | Clinical Summary ---
Author Organization [facility] Address [place], [place] [address] Care Team Providers Care Manager Ent Name Role Phone Ben Josefaannmarie Lizarraga DO Primary Care Provider Allergies Active Allergy Reactions [...] 03/18/[address] 07/26/2018 Hypermetropia 01/12/2013 Encounters Date Type Department Care Team Description 09/15/2023 Telephone [facility] [address] [place] [address] Geno Lozano PA Appointment 09/10/2023 8:26 PM CDT - 09/10/2023 9:20 PM CDT Emergency [facility] [address] [place] [address] Judith Lyons PA Urticaria (Primary Dx); Nexplanon in place Discharge Disposition: Home Self Care 09/10/2023 Travel 09/10/2023 Nurse Triage [facility] [address] [place] [address] Josefa Contreras, DO Derm Problem from Last 3 Months Immunizations Name Administration Dates Next Due DTaP 05/06/2006, 3,2001,09/16,2001 DTaP-HIB (TriHIBIT) 08/16/2002 HIB-HepB (Comvax) 02/28/2002,2001,07/17/19 02 HPV 9 (Gardasil 9) 11/08/2018 Hepatitis A [...] Paying Living Expenses Not on file 02/16/2021 Sex and Gender Information Value Date Recorded [...] Outcome GA Total Labor Labor/2nd/3rd Weight Sex Type Anes PTL Naya A1 A5 Name Clin Last Filed Vital Signs Vital Sign Reading Time Taken Comments Blood Pressure 114/65 09/10/2023 8:27 PM CDT Pulse 78 09/10/2023 8:27 PM CDT Temperature 36.8 ??C (98.2 ??F) 09/10/2023 8:27 PM CD T Respiratory Rate 20 09/10/2023 8:27 PM CDT Oxygen Saturation 97% 09/10/2023 8:27 PM CDT Inhaled Oxygen Concentration - - Weight 61.7 kg (136 lb) 09/10/2023 8:27 PM CDT Height 160 cm (5' 3) 09/10/2023 8:27 PM CDT Body Mass Index 24.09 09/10/2023 8:27 PM CDT Plan of Treatment Health Maintenance Due Date [...] CHLAMYDIA TRACH PROBE Routine 04/19/2020 10:12 AM INSTANT PRINTER OPERATOR Nausea Screening for chlamydial disease from Last 3 Months or Most Recently Relevant to Health Maintenance Results * GC & CHLAMYDIA DNA PCR [[id number]] (04/19/2020 10:12 AM INSTANT PRINTER OPERATOR) CHLAMYDIA PROBE Negative 10:25 PM INSTANT PRINTER OPERATOR [facility] N GONORRHOEAE PROBE Negative 04/20/2020 10:25 PM INSTANT PRINTER OPERATOR [facility] Other URINE SPECIMEN / Unknown Non-Blood / Unknown 04/19/2020 10:12 AM INSTANT PRINTER OPERATOR 04/19/2020 10:12 AM INSTANT PRINTER OPERATOR Josefa Contreras DO MICROBIOLOGY [facility] [address] [place] [address], from Last 3 Months or Most Recently Relevant to Health Maintenance Care Teams Manager Ent Relationship Specialty Start Date End Date Josefa Contreras DO [address] [place] [address] PCP - General Internal Medicine 07/26/18
[2023-09-30 17:36] LABS: Appearance Urine Clear (Clear); Bilirubin Urine Negative (Negative); Blood Urine 2+ (Negative); Color Urine Yellow (Yellow); Glucose Urine Negative (Negative); Ketones Urine Negative (Negative); Leukocyte Esterase Urine 1+ (Negative); Nitrite Urine Negative (Negative); Protein Urine Negative (Negative); Specific Gravity Urine 1.015 (1.000-1.030); Urobilinogen Urine 0.2 (0.2-1.0)
--- NOTE | 2023-09-30 17:42 | ED.GENADULT ---
HPI - General Adult General Chief complaint: Abdominal Pain Stated complaint: Pain below ribs, hurts into back Time Seen by Provider: 09/30/23 16:10 Source: patient Mode of arrival: ambulatory Limitations: no limitations History of Present Illness HPI narrative: 23-year-old female coming in today complaining of right upper quadrant abdominal pain that started approximately 6 hours ago. She denies nausea or vomiting. No fevers or chills. Nothing seems to make the pain better or worse. Pain is located right underneath the right ribs and radiates to the mid right back. She denies trouble with urination such as increased frequency, urgency or dysuria. She was treated for UTI last week, states that her symptoms have resolved. She denies diarrhea or constipation. She denies alcohol use last night. She denies any prior intra-abdominal surgeries. Related Data Previous Rx's ?Medication ?Instructions ?Recorded ciprofloxacin HCl 500 mg tablet 500 mg PO BID 7 days #14 tabs 09/30/23 Allergies Allergy/AdvReac Type Severity Reaction Status Date / Time Sulfa (Sulfonamide Allergy Mild Rash Verified 09/25/23 12:16 Antibiotics) Review of Systems Status of ROS: Reports: 10 or more systems reviewed and unremarkable except as noted in History and below [facility] Medical History Anemia associated with acute blood loss ?D62 - Acute posthemorrhagic anemia (ICD-10) delivery ?O60.10X0 - labor with delivery, unspecified trimester, not applicable or unspecified (ICD-10) Major depression, recurrent ?F33.9 - Major depressive disorder, recurrent, unspecified (ICD-10) Tetrahydrocannabinol (THC) use disorder, mild, abuse ?F12.10 - Cannabis abuse, uncomplicated (ICD-10) Surgical History (normal spontaneous vaginal delivery) ?O80 - Encounter for full-term uncomplicated delivery (ICD-10) Social History Narrative: Single, one child, THC, angelo Smith Mackenzie Smoking Status: Current every day smoker Do you use any of these nicotine containing products: E-Cigarettes and Vaping Products Second hand tobacco smoke exposure: No How often do you have a drink containing alcohol: never AUDIT-C Alcohol total score: 0 Non-prescribed substance use: marijuana (any form) Little interest or pleasure in doing things: several days Feeling down, depressed, or hopeless: more than half the days Exam Narrative: Exam Narrative: Well-nourished well-developed patient in no acute distress. Alert and oriented. Answers questions appropriately. Mood and affect are appropriate. Thoughts are goal oriented and rational. No tangential or magical thinking noted. Patient speaks in full sentences without needing to catch their breath. HEENT: Normocephalic atraumatic. Pupils are equally round reactive to light. Extraocular muscles are intact. Conjunctivae are moist without any icterus noted. Moist mucous membranes. Posterior pharynx is normal. Neck is soft without any lymphadenopathy or thyromegaly. No masses are appreciated. Cardiovascular: Heart is regular rate and rhythm S1 and S2 are present without any murmurs. Lungs: Clear to auscultation bilaterally no wheezes rhonchi or rales are appreciated. Patient takes deep breaths without any discomfort. Abdomen: Soft and nontender nondistended with normal bowel sounds. No guarding or rebound. No masses or organomegaly appreciated. Negative Flowers sign. No CVA tenderness. Extremities: Bilateral lower extremities are without edema. Skin: Well perfused without any obvious rashes. Const: Vital Signs, click to edit/add: Vital Signs - 24 hr 09/30/23 15:49 Temperature 98.4 F Pulse Rate [Pulse Oximeter] 67 Respiratory Rate 16 Blood Pressure [Ri ght Upper Arm] 111/61 Pulse Oximetry 98 Oxygen Delivery Me thod Room Air Course Course ED Course: Lab work was unremarkable. UA grossly positive for signs of infection. Right upper quadrant ultrasound was unremarkable. Vital Signs Vital signs: Initial Vital Signs Temperature 98.4 F 09/30/23 15:49 Temperature Source Temporal Artery Scan 09/30/23 15:49 Pulse Rate 67 09/30/23 15:49 Respiratory Rate 16 09/30/23 15:49 Blood Pressure 111/61 09/30/23 15:49 Blood Pressure Mean 77 09/30/23 15:49 Pulse Oximetry 98 09/30/23 15:49 Oxygen Delivery Method Room Air 09/30/23 15:49 Vital Signs Temperature 98.4 F 09/30/23 15:49 Pulse Rate 67 09/30/23 15:49 Respiratory Rate 16 09/30/23 15:49 Blood Pressure 111/61 09/30/23 15:49 Pulse Oximetry 98 09/30/23 15:49 Oxygen Delivery Method Room Air 09/30/23 15:49 Temperature 98.4 F 09/30/23 15:49 Pulse Rate 67 09/30/23 15:49 Respiratory Rate 16 09/30/23 15:49 Blood Pressure 111/61 09/30/23 15:49 Pulse Oximetry 98 09/30/23 15:49 Oxygen Delivery Method Room Air 09/30/23 15:49 Medical Decision Making MDM Narrative Medical decision making narrative: 23-year-old female with right upper quadrant and right flank discomfort, concerned about the possibility of pyelonephritis given her recent UTI and UA with continued signs of infection. Will treat the patient with ciprofloxacin twice a day for a week. Appears that she was on Macrobid for 5 days. Lab Data Lab results reviewed: Yes I reviewed the patient's lab results Labs: Lab Results 09/30/23 09/30/23 09/30/23 Range/Units 16:28 17:04 17:08 WBC 9.43 (4.50-11.00) K/uL RBC 4.56 (4.00-5.20) m/uL Hgb 13.2 (12.0-16.0) gm/dL Hct 41.8 (33.0-51.0) % MCV 92 (80-100) fL MCH 29 (26-34) pg MCHC 32 (32-36) gm/dL RDW Coeff of [place] 13.9 (11.5-15.5) % Plt Count 179 (140-440) K/uL Neut % (Auto) 70.3 (42.0-72.0) % Lymph % (Auto) 19.3 L (20-44) % [place] % (Auto) 8.5 (0.0-11.0) % Eos % (Auto) 1.3 (0.0-7.0) % Baso % (Auto) 0.5 (0.0-3.0) % Neut # (Auto) 6.63 (1.7-7.0) K/uL Lymph # (Auto) 1.80 (0.90-2.90) K/uL [place] # (Auto) 0.80 (0.00-0.90) K/UL Eos # (Auto) 0.12 (0.00-0.50) K/uL Baso # (Auto) 0.05 (0.00-0.30) K/uL Abs Immat Gran (auto) 0.01 (0.00-0.30) K/uL Imm/Tot Granulo (auto) 0.1 % Sodium 138 (135-149) mmol/L Potassium 3.8 (3.6-5.1) mmol/L Chloride 105 (96-114) mmol/L Carbon Dioxide 27 (20-32) mmol/L Anion Gap 6 L (7-15) mEq/L BUN 10 (5-24) mg/dL Creatinine 0.6 (0.5-1.5) mg/dL Estimated Creat Clear 121.66 Estimated GFR 130 ml/min Glucose 103 (60-115) mg/dL Lactate 0.7 (0.5-1.9) mmol/L Calcium 9.8 (8.4-10.6) mg/dL Total Bilirubin 0.6 (0.1-1.5) mg/dL Direct Bilirubin 0.3 (0.0-0.5) mg/dL AST 19 (12-35) U/L ALT 13 (4-35) U/L Alkaline Phosphatase 55 (40-150) U/L C-Reactive Protein < 0.5 L (0.5-1.0) mg/dL Total Protein 7.5 (6.0-8.3) g/dL Albumin 4.7 (3.3-5.0) g/dL Lipase 54 (23-300) U/L Urine Color Yellow (Yellow) Urine Appearance Clear (Clear) Urine pH 7.0 (5.0-8.5) Ur Specific [place] 1.015 (1.000-1.030) Urine Protein Negative (Negative) Urine Glucose (UA) Negative (Negative) Urine Ketones Negative (Negative) Urine Blood 2+ A (Negative) Urine Nitrite Negative (Negative) Urine Bilirubin Negative (Negative) Urine Urobilinogen 0.2 (0.2-1.0) Ur Leukocyte Esterase 1+ A (Negative) Urine RBC 2-5 A (0-2) Urine WBC 10-25 A (0-5) Ur Squamous Epith Cells Few (None-Few) Urine Bacteria Few A (None) Urine HCG, Qual Negative (Negative) Discharge Plan Discharge Clinical Impression: Complicated urinary tract infection Patient Disposition: Home, Self-Care Condition: Stable Additional Instructions: Starting the antibiotic 2 times per day for 7 days. Okay to use ibuprofen as needed for discomfort. Follow-up with your primary care provider early next week. Return to ER if pain is getting worse despite antibiotic therapy, you develop fevers or start vomiting. Prescriptions: New ciprofloxacin HCl 500 mg tablet 500 mg PO BID 7 Days Qty: 14 0RF Follow Up/Referrals: Krishna Hurley MD [Primary Care Provider] - Stand Alone Forms: [employer] Info Instructions
[2023-09-30 17:57] LABS: Bacteria Urine Few; Squamous Epithelial Cell Urine Few (None-Few)
[2023-09-30 18:07] LABS: Ur HCG Qualitative* Negative (Negative)
== END 2023-09-30 19:00 | disposition home or self-care (01) ==
PROVIDERS: Emergency Provider Family Medicine; PCP Family Medicine
DX: N39.0 Urinary tract infection, site not specified (principal)
CPT/HCPCS: 36415; 76705; 80048; 80076; 81001; 81025; 83605; 83690; 85025; 86140; 87086; 87186; 99283; 99284